=== PATIENT | female | born 1980 | race Hispanic/Latino ===

== ENCOUNTER 2018-07-12 14:55 | Outpatient (CLI) | payer BC, MEDICAID ==
--- NOTE | 2018-07-12 18:48 | MRI ---
MRI PELVIS WITHOUT CONTRAST: HISTORY: N88.9, lesion of cervix. Pain. COMPARISON: Ultrasound pelvis from 06/14/2018. FINDINGS: The endometrial thickness measures approximately 5 mm. The anterior and posterior junctional zone me asures 12 and 14 mm, respectively. Small nabothian cysts are present. The left side of the lower uterine body has a T2 hypointense mass, measuring up to 2.5 cm, likely a f ibroid. A left adnexal cyst is present. The right adnexa is unremarkable. Intrapelvic soft tissues: Unremarkable. Bones: Marrow signal is normal. There is a small, very subtle posterior disk osteophyte complex at L5-S1, without significant neural foramina or spinal canal narrowing. IMPRESSION: 1. Diffuse thickening of the junctional zone of the uterus, suggesting adenomyosis. 2. Left adnexal cyst. 3. Left sided lower uterine body 2.5 cm, T2 hypointense, round focus, likely a fibroid. POS: [facility]
== END 2018-07-12 14:56 | disposition home or self-care (01) ==
LOC: BICMRI 14:55
PROVIDERS: ATTEND Family Medicine
DX: N88.9 Noninflammatory disorder of cervix uteri, unspecified (principal); N83.8 Other noninflammatory disorders of ovary, fallopian tube and broad ligament; N85.8 Other specified noninflammatory disorders of uterus
CPT/HCPCS: 72195; 82565

== ENCOUNTER 2018-10-03 15:15 | Emergency (ER) | payer BC | END 2018-10-03 16:28 | disposition left against medical advice (07) | LOC: ERS 15:15 | DX: Z53.21 Procedure and treatment not carried out due to patient leaving prior to being seen by health care provider (principal) ==

== ENCOUNTER 2020-12-14 20:26 | Emergency (ER) | payer BC, MEDICAID ==
[2020-12-14] MEDS ORDERED: chlordiazePOXIDE HCl 25 MG CAP ONE (23:25)
== END 2020-12-14 23:42 ==
LOC: ERS 20:26
DX: F10.239 Alcohol dependence with withdrawal, unspecified (principal); F20.9 Schizophrenia, unspecified; G40.909 Epilepsy, unspecified, not intractable, without status epilepticus; J45.909 Unspecified asthma, uncomplicated; K74.60 Unspecified cirrhosis of liver; N19 Unspecified kidney failure; F17.210 Nicotine dependence, cigarettes, uncomplicated
CPT/HCPCS: 99283